=== PATIENT | female | born 1995 | race American Indian/Alaskan Native ===

== ENCOUNTER 2019-04-30 15:07 | Emergency (ER) | payer SELFPAY ==
[2019-04-30 15:13] VITALS: BP 109/72
--- NOTE | 2019-04-30 15:46 | Emergency Department Report ---
Blank Doc - Documentation Documentation: This is a 23-year-old female that presents with abdominal pain, nausea, and he adache. This initial assessment/diagnostic orders/clinical plan/treatment(s) is/are subject to change based on patient's health status, clinical progression and re- assessment by fellow clinical providers in the ED. Further treatment and workup at subsequent clinical providers discretion. Patient/guardians urged not to elope from the ED as their condition may be serious if not clinically assessed and managed. Initial orders include: 1- Patient sent to [facility] for further evaluation and treatment 2- labs 3- UA
[2019-04-30 16:07] LABS: Bilirubin,Urine NEG (Negative); Blood,Urine NEG (Negative); Color,Urine Yellow (Yellow); Mucus,Urine 1+ /HPF; Protein,Urine <15 mg/dL mg/dL (Negative); Urobilinogen,Urine < 2.0 mg/dL (<2.0)
[2019-04-30 16:13] LABS: Basophils % (Auto) 0.6 % (0.0-1.8); Eosinophils # (Auto) 0.1 K/mm3 (0.0-0.4); Eosinophils % (Auto) 1.3 % (0.0-4.3); Hematocrit 34.9 % (30.3-42.9); Hemoglobin 11.2 gm/dl (10.1-14.3); Lymphocytes # (Auto) 2.3 K/mm3 (1.2-5.4); Lymphocytes % (Auto) 32.1 % (13.4-35.0); Mean Corpuscular HGB Conc 32 % (30-34); Mean Corpuscular Volume 75 fl (79-97); Monocytes # (Auto) 0.5 K/mm3 (0.0-0.8); Monocytes % (Auto) 6.5 % (0.0-7.3); Platelet Count 290 K/mm3 (140-440); Red Blood Count 4.68 M/mm3 (3.65-5.03); Red Cell Distribution Width 19.4 % (13.2-15.2)
[2019-04-30 16:37] LABS: Alanine Aminotransferase 12 units/L (7-56); Albumin 4.2 g/dL (3.9-5); BUN/Creatinine Ratio 14; Blood Urea Nitrogen 10 mg/dL (7-17); Calcium 9.5 mg/dL (8.4-10.2); Hemolysis Index 3
[2019-04-30] MEDS ORDERED: IBUPROFEN PO ONE (18:36)
--- NOTE | 2019-04-30 18:42 | Emergency Department Report ---
HPI - General Chief Complaint: Headache Time Seen by Provider: 04/30/19 15:44 - HPI HPI: 23 yo comes complaining of n/v and headache. ambulatory. no n/v in 4 hours in er. no trauma. no med hx. requesting work note. ED Past Medical Hx - Past Medical History Previous Medical History?: No - Surgical History Past Surgical History?: No - Social History Smoking Status: Never Smoker Substance Use Type: None - Medications Home Medications: Home Medications Medication Instructions Recorded Confirmed Last Taken Type Naproxen [Naprosyn] 500 mg PO BID PRN #20 tablet 04/30/19 Unknown Rx Ondansetron [Zofran Odt] 4 mg PO Q8HR PRN #10 tab.rapdis 04/30/19 Unknown Rx ED Review of Systems ROS: Stated complaint: BAD HEADACHES/WEAK/STOMACH PAIN Other details as noted in HPI Comment: All other systems reviewed and negative Physical Exam - Physical Exam Vital Signs: Vital Signs 04/30/19 04/30/19 15:12 15:45 Temperature 98 F 98 F Pulse Rate 114 H 66 Respiratory 18 18 Rate Blood Pressure 109/72 Blood Pressure 109/72 [Right] O2 Sat by Pulse 98 100 Oximetry Physical Exam: a/o ambulatory s1s2 HR 90 on exam lungs cta abd snt no cva tenderness no focal def ED Course Vital Signs 04/30/19 04/30/19 15:12 15:45 Temperature 98 F 98 F Pulse Rate 114 H 66 Respiratory 18 18 Rate Blood Pressure 109/72 Blood Pressure 109/72 [Right] O2 Sat by Pulse 98 100 Oximetry ED Medical Decision Making - Lab Data Result diagrams: 04/30/19 15:58 04/30/19 15:58 - Medical Decision Making Labs 04/30/19 04/30/19 04/30/19 15:00 15:58 15:58 WBC 7.2 RBC 4.68 Hgb 11.2 Hct 34.9 MCV 75 L MCH 24 L MCHC 32 RDW 19.4 H Plt Count 290 Lymph % (Auto) 32.1 [place] % (Auto) 6.5 Eos % (Auto) 1.3 Baso % (Auto) 0.6 Lymph # 2.3 [place] # 0.5 Eos # 0.1 Baso # 0.0 Seg Neutrophils % 59.5 Seg Neutrophils # 4.3 Sodium 140 Potassium 4.4 Chloride 103.4 Carbon Dioxide 26 Anion Gap 15 BUN 10 Creatinine 0.7 Estimated GFR > 60 BUN/Creatinine Ratio 14 Glucose 89 Calcium 9.5 Total Bilirubin < 0.20 AST 17 ALT 12 Alkaline Phosphatase 37 Total Protein 7.8 Albumin 4.2 Albumin/Globulin Ratio 1.2 Lipase 28 HCG, Qual Urine Color Yellow Urine Turbidity Clear Urine pH 5.0 Ur Specific [place] 1.016 Urine Protein <15 mg/dl Urine Glucose (UA) Neg Urine Ketones Neg Urine Blood Neg Urine Nitrite Neg Urine Bilirubin Neg Urine Urobilinogen < 2.0 Ur Leukocyte Esterase Neg Urine WBC (Auto) 1.0 Urine RBC (Auto) 2.0 U Epithel Cells (Auto) < 1.0 Urine Mucus 1+ 04/30/19 15:58 WBC RBC Hgb Hct MCV MCH MCHC RDW Plt Count Lymph % (Auto) [place] % (Auto) Eos % (Auto) Baso % (Auto) Lymph # [place] # Eos # Baso # Seg Neutrophils % Seg Neutrophils # Sodium Potassium Chloride Carbon Dioxide Anion Gap BUN Creatinine Estimated GFR BUN/Creatinine Ratio Glucose Calcium Total Bilirubin AST ALT Alkaline Phosphatase Total Protein Albumin Albumin/Globulin Ratio Lipase HCG, Qual Negative Urine Color Urine Turbidity Urine pH Ur Specific [place] Urine Protein Urine Glucose (UA) Urine Ketones Urine Blood Urine Nitrite Urine Bilirubin Urine Urobilinogen Ur Leukocyte Esterase Urine WBC (Auto) Urine RBC (Auto) U Epithel Cells (Auto) Urine Mucus Vital Signs 04/30/19 04/30/19 15:12 15:45 Temperature 98 F 98 F Pulse Rate 114 H 66 Respiratory 18 18 Rate Blood Pressure 109/72 Blood Pressure 109/72 [Right] O2 Sat by Pulse 98 100 Oximetry labs and ua noted taking po ambulatory VSS no n/v in er. no dysuria no vag dc no vag bleeding abd snt dc home with pcp follow up. - Differential Diagnosis ro preg/ ro uti Critical care attestation.: If time is entered above; I have spent that time in minutes in the direct care of this critically ill patient, excluding procedure time. ED Disposition Clinical Impression: Headache, Nausea & vomiting Disposition: DC-01 TO HOME OR SELFCARE Is pt being admited?: No Condition: Fair Instructions: Acute Headache (ED) Additional Instructions: hydrate well with water meds as ordered today follow up pcp referral below diet as tolerated activity as tolerated Prescriptions: Naproxen [Naprosyn] 500 mg PO BID PRN #20 tablet PRN Reason: Pain Ondansetron [Zofran Odt] 4 mg PO Q8HR PRN #10 tab.rapdis PRN Reason: Vomiting Referrals: ELY BLACKBURN MD [Staff Physician] - 3-5 Days Forms: Accompanied Note, Work/School Release Form(ED) Time of Disposition: 18:44
[2019-04-30] MEDS ORDERED: ZOFRAN ODT PO ONE (18:46)
== END 2019-04-30 19:00 | disposition home or self-care (01) ==
LOC: ED 15:07
DX: R51 Headache (principal); R11.2 Nausea with vomiting, unspecified; Z88.6 Allergy status to analgesic agent; Z79.899 Other long term (current) drug therapy
CPT/HCPCS: 36415; 80053; 81001; 83690; 84703; 85025; 99283; Q0162